=== PATIENT | female | born 1975 | race Caucasian/White ===

== ENCOUNTER → 2018-02-18 | Outpatient (CLI) | payer OTHER | LOC: FIMAGING 10:33 | PROVIDERS: ATTEND Advanced Practice Midwife | DX: O09.522 Supervision of elderly multigravida, second trimester (principal); Z3A.27 27 weeks gestation of pregnancy ==

== ENCOUNTER → 2018-04-28 | Outpatient (CLI) | payer OTHER ==
[~2018-04-28] MED LIST: OLIVE OIL 118 ML BTL ONE; TERBUTALINE SULFATE 1 MG/ML VIAL SC ONE
[2018-04-28 07:21] LABS: PLATELET COUNT 154 10^3/uL (150-400)
[2018-04-28 07:36] VITALS: BP 121/73
--- NOTE | 2018-04-28 08:07 | OBPROG ---
Labor Progress Note Assessment/Plan: Assessment: IUP at 37w4d breech C with Gage Births Plan: ECV - successful, will monitor for reassurance and then d/c home. Pt fine to eat. 04/28/18 08:01 Subjective/Intrapartum Course: 04/28/18 08:02 Pt ready for version, seen last week at [facility] and risks/bene disc. U/S done and baby in great position for left forward roll. back to right side and bottom not too settled in pelvis. good fluid. Reactive NST prior to ECV. pt given terb Objective: 04/28/18 06:45 Temp Pulse Resp BP Pulse Ox 100 121/73 H 04/28/18 07:33 04/28/18 07:33 ECV performed with PS, CNM. Forward roll to left in one movement - took approx 2 min. U/S done and FHTs with very transient dip to 100s but then up to 150s. put on monitors and immed reactive pattern. baseline 130s GBTBV and accels. no decels - SVE Membranes: Intact - Contraction Pattern Assessment Current Contraction Pattern: Other (Specify) (none) - FHR Assessment Hackett FHR (bpm): 130 FHR Pattern Variability: Moderate FHR Category: 1 (reactive NST) Oxytocin Orders Assessment - Pre-Induction/Augmentation Assessment Gestational Age: 37 week(s) and 4 day(s) ICD10 Worksheet Patient Problems: Problems Problem Status Onset Breech malpresentation successfully converted to cephalic presentation Acute AMA (advanced maternal age) primigravida 35+ Acute Anemia Acute Vacuum extraction, delivered, current hospitalization Acute - ICD10 Problem Qualifiers (1) AMA (advanced maternal age) primigravida 35+ (2) Breech malpresentation successfully converted to cephalic presentation
--- NOTE | 2018-04-28 09:07 | GHP ---
DATE OF ADMISSION: 04/28/2018 The patient is a 42-year-old G2, P1 at 37+ weeks gestation with an estimated due date of 05/15/2018, who has a breech presentation, for which she consulted with [facility] last week about attemp ting external cephalic version. The patient has had full care with [facility] and is int ending her delivery with them, if the baby can be everted to vertex. The patient has had an uncompli cated other than the breech presentation. The patient's labs have been all normal through the . Her blood type is O positive, rubella immune. No other abnormalities. GBS culture w as performed on 04/21. No results at this time. The patient was thoroughly counseled about the risk s and benefits during an office visit with her and her . The patient agrees to the procedures . She does understand that terbutaline will be used for uterine relaxation. PAST OBSTETRIC HISTORY: The patient had her 1st here at [facility] in June 2014 with her son. It was a vacuum-assisted delivery that she reports was done due to maternal fatig ue after a long protracted labor. The patient had care and attempted with [facility]; however, presented to the hospital after hours of labor, requiring pain medication. She had a vacuum -assistance and had a 3rd to 4th degree tear with that delivery. Singh was approximately 7 pounds. PAST MEDICAL HISTORY: Negative. PAST SURGICAL HISTORY: Negative. ALLERGIES: The patient has no known drug allergies. CURRENT MEDICATIONS: Only vitamins and supplements. SOCIAL HISTORY: The patient is , lives with her and son. The patient is a nonsmoker. No alcohol or drug use. LABS: The patient presented to Labor and Delivery for attempted version. A CBC was performed, which white count is 10.3, hematocrit 39.7, platelet count 154,000. PHYSICAL EXAM: The patient is a well-developed, well-nourished white female in no physical distress. Slightly anxious about the procedure. Vital signs include blood pressure 121/73 and heart rate 100 . The patient is afebrile. See nursing documentation for full details of vital signs. NST was perf ormed before the procedure, and there was a reactive heart rate pattern with baseline in the 13 0s with good [id number] variability and accelerations. There are no decelerations noted. The bhargav ent ready to proceed with the procedure. The ultrasound was performed, and the baby was in persisten t breech presentation. Back was to the maternal right, and head was in the left upper quadrant. The breech was not too deep in the pelvis. There was good amniotic fluid. Extremities are nontender. There was no edema. No vaginal exam was performed. ASSESSMENT: Intrauterine at 37+ weeks, breech presentation at 37+ weeks, and the patient p resents for external cephalic version. PLAN: The patient to receive terbutaline and then proceed with version attempt. Anesthesia is aware and in-house. /[id number]/MODL
== END ==
LOC: FOBOP 06:47 → EDSTATUS 07:30 → FOBOP 08:58
PROVIDERS: ATTEND Obstetrics & Gynecology
DX: O32.1XX0 Maternal care for breech presentation, not applicable or unspecified (principal); O09.523 Supervision of elderly multigravida, third trimester; Z3A.37 37 weeks gestation of pregnancy
CPT/HCPCS: J3105

== ENCOUNTER 2018-05-13 08:48 | Inpatient (IN) | payer OTHER ==
--- NOTE | 2018-05-13 08:54 | PREANESOB ---
Obstetric Pre-Anesthesia Info - General Info Proposed Procedure: labor epidural : 2 Para: 1 TOMYM: 05/16/18 - Info Status: Full Term - Labor Status Cervical Dilation per last OB SVE: 7 PIH: No Magnesium Sulfate in Use: No Indications for Labor Analgesia: Pain Control Labor Epidural: Yes Anesthesia Allergies/Adverse Reactions: Allergy/AdvReac Type Severity Reaction Status Date / Time MACADAMIA NUTS Allergy Severe COMPLETE Uncoded 06/08/11 16:01 RASH/ WELTS Home Medications: Medication Instructions Recorded [employer] 05/31/10 06/17/14 Ibuprofen [Motrin (*)] 600 mg PO Q6 PRN #1 tab 06/19/14 Iron Polysacch/Iron Heme Polyp 28 mg PO BID #45 tab 06/19/14 [Bifera] - Anesthesia History Response to Local Anesthetics: Normal Anesthesia & Operative History: No Prior Problems - Focused Exam Neck exam: FROM Mallampati Score: Class 2 Mouth exam: normal dental/mouth exam Pulmonary: no respiratory distress Cardiovascular: regular rate and rhythym - Plan Consent Signed and on Chart: Yes Patient/Guardian Understands and Agrees to Plan: Yes
[2018-05-13] MEDS ORDERED: TERBUTALINE SULFATE 1 MG/ML VIAL IV PRN (09:02)
[2018-05-13] MEDS ORDERED: OXYTOCIN/RINGERS LACTATE 1,000 ML IV PRN (09:02)
[2018-05-13] MEDS ORDERED: LR 1,000 ML IV PRN (09:02)
[2018-05-13] MEDS ORDERED: OLIVE OIL 118 ML BTL MISC PRN (09:02)
[2018-05-13] MEDS ORDERED: LIDOCAINE 1% 300 MG/30 ML SDV SC PRN (09:02)
[2018-05-13] MEDS ORDERED: MISOPROSTOL 200 MCG TAB PR PRN (09:02)
[2018-05-13] MEDS ORDERED: EPSOM SALT 454 GM TP PRN (09:02)
[2018-05-13] MEDS ORDERED: IBUPROFEN 600 MG TAB PO PRN (09:02)
[2018-05-13] MEDS ORDERED: PHENYLEPHRINE HCL 100 MCG/ML SYR ONE (09:18)
[2018-05-13] MEDS ORDERED: BUPIVACAINE 0.25% 30 ML SDV ONE (09:23)
[2018-05-13] MEDS ORDERED: NALOXONE HCL 0.4 MG/ML INJ IVP PRN (09:29)
[2018-05-13] MEDS ORDERED: PHENYLEPHRINE HCL 100 MCG/ML SYR IVP PRN ×2 (09:29→19:07)
[2018-05-13] MEDS ORDERED: fentaNYL 2MCG/ML/BUP 0.1% RTU 100 ML EP SCH (09:30)
[2018-05-13] MEDS ORDERED: fentaNYL 200 MCG, BUPIVACAINE 0.5% 20 ML in NS 100 ML EP ONE (09:30)
[2018-05-13] MEDS ORDERED: LR 500 ML IV SCH (09:30)
--- NOTE | 2018-05-13 09:44 | PDGENHP ---
History and Physical History and Physical: CARE: [facility] HPI: Patient is a 43 yo G 2 P 1 @ 39.4 weeks that presents to L&D from [facility]. She had routine PNC at [facility] with a gap in care during summer months while she was living in [place]. Pt has been laboring since 1930 on 06/11. She arrived at [facility] at 2130 and was found to be 3cm/ballotable. She labored with reassuring FHT and found to be 7cm/90/-3 station at 0315 this AM. Her contractions intensified but she had no cervical changed and no descent over next several hours. She requested transfer to [facility] for epidural d/t maternal exhaustion. EDC: 05/16/2018 which is based on LMP: 08/08/17 which is known and consistent with Ultrasound at 28 weeks. Anatomy scan delayed b/c pt was living in [facility] for the summer. Her is complicated by: AMA over 40yo. Review of Systems: Constitutional: Reports fatigue. Denies any fever, chills HEENT: denies any visual changes, difficulty swallowing, hearing loss Cardiovascular: Denies any chest pain, palpitations, leg swelling Respiratory: denies any cough, wheezing, or shortness of breathe GI: Reports mild nausea. Denies any vomiting, diarrhea, constipation : denies any dysuria, urgency, frequency, vaginal bleeding Musculoskeletal: denies any muscle or bone pain Skin: denies any rashes Neuro: denies any headache, seizures, lightheadedness, dizziness, or loss of consciousness Psychiatric: denies any depression, anxiety, or SI/HI thoughts HISTORY: Previous OB history: VAVD in 2015 with 3rd or 4th degree lac., prolonged labor 7# baby boy. Social history: , works in [employer] Family history: sister-anxiety, father-heart disease Past medical history: head injury 1998, head aches and migraines Past surgical history: none Medications: PNV, probiotics, D3, B6,Mag Allergies (list reaction): macadamia nuts, hazelnuts, eggs, NKDA LABS: Rh: O + ABS: Neg Rubella: Immune HbsAg: NR HIV: NR VDRL: NR 1hr: 100 GC: Neg Chlamydia: Neg Pap: Normal GBS: neg BMI: (prepreg) <30 PHYSICAL EXAM: Constitutional: WN, A&Ox3 HEENT: normocephalic atraumatic, supple Heart: RRR, no murmur Chest: CTA-B Skin: warm, dry, intact Abdomen: Soft, nontender, gravid SVE: at 0800, 7/90/-3 Extremities: trace edema, negative homans sign Neuro: grossly normal Psych: normal affect assessment: FHT baseline 135, +accels, no decels, moderate variability Contractions: toco q 5-7 min Assessment: 1) 43 yo G 2 P 1 with IUP@ 39.4 weeks 2) slow progress in labor 3) GBS neg 4) Cat 1 FHR tracing Plan: 1) Admit to L&D 2) epidural anesthesia 3) pitocin augmentation 4) anticipate , Dr. Shah aware
[2018-05-13 10:24] LABS: PLATELET COUNT 146 10^3/uL (150-400)
--- NOTE | 2018-05-13 10:58 | OBPROG ---
Labor Progress Note Assessment/Plan: Assessment: comfortable with epidural SVE /-3 Plan: pitocin augmentation position changes 05/13/18 10:56 Objective: 05/13/18 08:10 VSS - SVE Dilation (cm): 9 Effacement (%): 90 Station: -3 Membranes: Intact (bulgy bag palpated on exam, but appears to be leaking some clear fluid) Amniotic Fluid Color: Clear - Contraction Pattern Assessment Current Contraction Pattern: Irregular Oxytocin Orders Assessment - Pre-Induction/Augmentation Assessment Presentation: Vertex Gestational Age: 39 week(s) and 4 day(s) Estimated Weight: 6984-0341 Membrane Status: Intact Current Contraction Pattern: Irregular ICD10 Worksheet Patient Problems: Problems Problem Status Onset AMA (advanced maternal age) multigravida 35+ Acute Prolonged labor with second Acute Slow progress in first stage of labor Acute
--- NOTE | 2018-05-13 13:34 | OBPROG ---
Labor Progress Note Assessment/Plan: Assessment: SROM at 12:20 Plan: pitocin augmentation position changes 05/13/18 10:56 05/13/18 13:32 Subjective/Intrapartum Course: 05/13/18 13:32 comfortable with epidural feeling more pressure Objective: 05/13/18 08:10 Patient ABO/Rh O POSITIVE 05/13/18 08:10 - SVE Membranes: Intact (bulgy bag palpated on exam, but appears to be leaking some clear fluid) Amniotic Fluid Color: Clear - Contraction Pattern Assessment Current Contraction Pattern: Regular - FHR Assessment Hackett FHR (bpm): 140 FHR Pattern Variability: Minimal FHR Category: 1 - Physical Exam Estimated Weight: 3193-3603 Oxytocin Orders Assessment - Pre-Induction/Augmentation Assessment Presentation: Vertex Gestational Age: 39 week(s) and 4 day(s) Estimated Weight: 5644-9522 ICD10 Worksheet Patient Problems: Problems Problem Status Onset AMA (advanced maternal age) multigravida 35+ Acute Prolonged labor with second Acute Slow progress in first stage of labor Acute
[2018-05-13] MEDS ORDERED: fentaNYL 200 MCG, BUPIVACAINE 0.5% 20 ML in NS 100 ML EP SCH (15:30)
[2018-05-13] MEDS ORDERED: LIDO/EPI 1% **for epidural** 30 ML SDV ONE (15:30)
[2018-05-13] MEDS ORDERED: LR 500 ML IV ONE (17:40)
[2018-05-13] MEDS ORDERED: ceFAZolin 2 GM/DEXTROSE 100 ML IV ONE (17:40)
--- NOTE | 2018-05-13 17:44 | OBPROG ---
Labor Progress Note Assessment/Plan: Assessment: I discussed options for interventions with Aleisha and her partner. She did have a difficult delivery with her first who was born vaginally but only after quite a bit of pushing and ultimate sustained signficant perineal trauma that made for a very difficult recovery. I offered that we certainly had options bc the baby is looking good. I wouldn't feel comfortable assisting with forceps or vacuum at this station, but I offered that we could continue to push and reasses at a later time, or we could move towards Csection now. She'd really prefer to move towards , which I think is very reasonable for her given her progress, her history and her current exam. Consents signed in person, preop orders placed. Subjective/Intrapartum Course: 05/13/18 13:32 comfortable with epidural feeling more pressure 05/13/18 17:42 I was asked to see and examine Aleisha by Priscilla Morales CNM. At this point she's been pushing for approximately one hour and has made minimal progress per Priscilla' s exams. I did check her and found her to be complete but still at 0 station, ROP position with some caput. Category I tracing. Objective: 05/13/18 08:10 Patient ABO/Rh O POSITIVE 05/13/18 08:10 - SVE Dilation (cm): 10 Effacement (%): 100 Station: 0 (Asynclitic, ROP) Membranes: Intact (bulgy bag palpated on exam, but appears to be leaking some clear fluid) Amniotic Fluid Color: Clear - Contraction Pattern Assessment Current Contraction Pattern: Regular - FHR Assessment Hackett FHR (bpm): 140 FHR Pattern Variability: Moderate FHR Category: 1 - Physical Exam Estimated Weight: 9960-7255 Oxytocin Orders Assessment - Pre-Induction/Augmentation Assessment Presentation: Vertex Gestational Age: 39 week(s) and 4 day(s) Estimated Weight: 2109-6092 ICD10 Worksheet Patient Problems: Problems Problem Status Onset Failure of descent in labor, delivered, current hospitalization Acute AMA (advanced maternal age) multigravida 35+ Acute Prolonged labor with second Acute Slow progress in first stage of labor Acute
--- NOTE | 2018-05-13 17:51 | OBPROG ---
Labor Progress Note Assessment/Plan: Assessment: SROM at 12:20 Plan: pitocin augmentation position changes 05/13/18 10:56 05/13/18 13:32 05/13/18 17:45 minimal progress with pushing. Baby still at -1 station. Reviewed options of continuing to push with possible larger baby, risk of distress, risk of shoulder dystocia. Pt chooses to move toward c/s because of vaginal trauma from first delivery. Feeling tired and ready for delivery. Subjective/Intrapartum Course: 05/13/18 13:32 comfortable with epidural feeling more pressure 05/13/18 17:42 I was asked to see and examine Aleisha by Priscilla Morales CNM. At this point she's been pushing for approximately one hour. Objective: 05/13/18 08:10 Patient ABO/Rh O POSITIVE 05/13/18 08:10 - SVE Dilation (cm): 10 Effacement (%): 100 Station: -1 Membranes: SROM Amniotic Fluid Color: Clear - Contraction Pattern Assessment Current Contraction Pattern: Regular - Physical Exam Estimated Weight: 7969-2752 Oxytocin Orders Assessment - Pre-Induction/Augmentation Assessment Presentation: Vertex Gestational Age: 39 week(s) and 4 day(s) Estimated Weight: 3876-9802 ICD10 Worksheet Patient Problems: Problems Problem Status Onset Failure of descent in labor, delivered, current hospitalization Acute AMA (advanced maternal age) multigravida 35+ Acute Prolonged labor with second Acute Slow progress in first stage of labor Acute - ICD10 Problem Qualifiers (1) Failure of descent in labor, delivered, current hospitalization
[2018-05-13] MEDS ORDERED: LR 1,000 ML IV SCH (18:00)
[2018-05-13] MEDS ORDERED: morphINE PF 5 MG/10 ML INJ ONE (18:04)
[2018-05-13] MEDS ORDERED: ONDANSETRON 4 MG/2 ML VIAL ONE (18:44)
[2018-05-13] MEDS ORDERED: OXYTOCIN 100 UNITS/10 ML VIAL ONE ×3 (18:47)
[2018-05-13] MEDS ORDERED: HYDROCODONE/APAP 5/325 TAB PO PRN (19:07)
[2018-05-13] MEDS ORDERED: OXYCODONE/APAP 5/325 TAB PO PRN (19:07)
[2018-05-13] MEDS ORDERED: MEPERIDINE 25 MG/0.5 ML AMP IVP PRN (19:07)
[2018-05-13] MEDS ORDERED: HYDROmorphONE/DILAUDID 1 MG/ML INJ IVP PRN (19:07)
[2018-05-13] MEDS ORDERED: fentaNYL 100 MCG/2 ML INJ IVP PRN (19:07)
--- NOTE | 2018-05-13 19:10 | POSTANESTH ---
Post Anesthetic Evaluation Cardiovascular Status: Normal, Stable Respiratory Status: Normal, Stable Level of Consciousness/Mental Status: Can Participate in Eval Pain Control: Adequate, Prn Tx Ordered Nausea/Vomiting Control: Adequate, Prn Tx Ordered Complications Possibly Related to Anesthesia: None Noted
[2018-05-13] MEDS ORDERED: ePHEDrine SULFATE 25 MG/5 ML SYR ONE (19:18)
[2018-05-13] MEDS ORDERED: oxyCODONE IR 5 MG TAB PO PRN (19:47)
[2018-05-13] MEDS ORDERED: PROMETHAZINE HCL 25 MG/ML INJ IVP PRN (19:47)
--- NOTE | 2018-05-13 20:17 | POSTOPPROG ---
Post Op Note Date of Operation: 05/13/18 Surgeon: Joe Shah [employer] Worker: Priscilla Morales CNM, Kaye Wheat, RN Anesthesiologist: Sheba Anesthesia: Epidural Pre-op Diagnosis: Arrest of descent Post-op Diagnosis: Same, malposition ROP Procedure: PLTCS Findings: Normal uterus, tubes and ovaries, vigorous baby girl Inf/Abcess present in the surg proc area at time of surgery?: No EBL: 700cc Complications: None Specimen(s): No cord blood gasses, placenta not sent.
--- NOTE | 2018-05-13 20:26 | SUROPNOTE ---
[facility] Operative Report - Surgery Date of Operation: 05/13/18 Surgeon: Joe Shah [employer] Operator: Priscilla Morales CNM, Kaye Wheat RN Anesthesiologist: Sheba Anesthesia: Epidural Pre-op Diagnosis: Arrest of descent Post-op Diagnosis: Same, malposition ROP Procedure: PLTCS Findings: Normal uterus, tubes and ovaries, vigorous baby girl - ROP position Inf/Abcess present in the surg proc area at time of surgery?: No EBL: 700cc Complications: None Specimen(s): No cord blood gasses, placenta not sent. Technique: The patient was taken to the OR where epidural was dosed and anesthesia found to be adequate. The patient was then positioned supine with a leftward tilt and a time-out was performed. She was given weight-based antibiotics prior to skin incision. The abdomen was prepped and draped in normal sterile fashion. A Pfannenstiel skin incision was made with the scalpel and carried down to the fascia. The fascia was incised in the midline and the incision extended bilaterally sharply with scissors. The fascia was dissected off of the underlying rectus muscles superiorly and inferiorly also sharply using scissors. The rectus were in the midline and the peritoneum identified and entered bluntly without issue. The peritoneal incision was extended and the bladder blade was then placed. The vesicouterine junction was identified and a bladder flap created sharply and developed bluntly. A transverse incision was made with the scalpel in the lower uterine segment and extended with cephalad and caudad traction on the incision edges. The head was encountered and easily elevated out of the pelvis and delivered atraumatically, followed by the shoulders and body. The nose and mouth were bulb suctioned. We did wait for 60 seconds before clamping and cutting the cord and then the infant was handed to pediatric staff. Cord blood gases were not sent and the placenta was not sent to pathology. The uterus was then exteriorized and carefully wiped of all debris. The uterus was closed in two layers - the first layer was running with 180 0-vloc and the second a vertical imbricating layer using 0-vicryl. The gutters were cleared of all clots. The uterine incision was reinspected and found to be hemostatic after placement of additional figure of eight sutures of 3-0 vicryl. The uterus was then returned to the abdomen. The fascia was elevated and the rectus muscles and subcutaneous tissues were found to be hemostatic. The fascia was closed with a running 0-Vicryl - single suture. The subcutaneous tissues were irrigated and hemostasis obtained. The subcutaneous space was closed with interrupted sutures of 2-0 vicryl. The skin was closed with 4-0 vloc undyed and then covered with Medipore dressing. The patient tolerated the procedure and was taken to recovery in stable condition. Lap, needle, sponge, and instrument count were announced as correct times two. I was present and scrubbed for the entire case.
[2018-05-13] MEDS: KETOROLAC 30 MG/1 ML SDV IVP SCH (20:44)
[2018-05-13] MEDS ORDERED: KETOROLAC 30 MG/1 ML SDV ONE (20:44)
[2018-05-13] MEDS: ACETAMINOPHEN 325 MG TAB PO SCH (22:00)
[2018-05-14] MEDS: ACETAMINOPHEN 325 MG TAB PO SCH ×4 (04:30→23:58)
[2018-05-14] MEDS: KETOROLAC 30 MG/1 ML SDV IVP SCH ×3 (04:38→18:20)
--- NOTE | 2018-05-14 11:13 | OBPP ---
Progress Note Assessment/Plan: Assessment: pod# 1 s/p PLTCS for arrest of descent uncomplicated post operative and post course breast feeding Plan: 05/14/18 11:10 Subjective/ Course: 05/14/18 11:11 patient is doing well. pain is well controlled. normal lochia. breast feeding is going well. denies headache and changes in vision. not passing gas yet. has dangled feet. Objective: 05/14/18 05:00 Patient ABO/Rh O POSITIVE 05/13/18 08:10 Temp Pulse Resp BP Pulse Ox 36.3 C 96 16 111/68 95 05/14/18 08:00 05/14/18 06:00 05/14/18 06:00 05/14/18 08:00 05/14/18 08:00 Physical Exam - Physical Exam Neck: non-tender, full range of motion, supple Respiratory: chest non-tender, lungs clear, normal breath sounds Cardiac/Chest: normal peripheral pulses, regular rate, rhythm Abdomen: normal bowel sounds, non-tender Extremities: normal range of motion, non-tender, normal inspection, normal capillary refill Skin: normal color, warm/dry, other (incision covered) Neuro/Psych: no motor/sensory deficits, alert, normal mood/affect, oriented x 3
--- NOTE | 2018-05-14 16:19 | OBPP ---
Progress Note Assessment/Plan: Assessment: [id number] s/p primary c/s POD#1 Plan: routine post op care d/c paul and remove dressing this evening ambulate support prn plan d/c approx 48 hrs 05/14/18 10:30 Subjective/ Course: 05/14/18 10:30 Pt doing well, she reports minimal pain, but increases with movement. She is without difficulty. She is happy with , processing ok. She denies any flatus. She has paul, which will be d/c'd this afternoon. She plans to ambulate today. She reports adequate pain control. 05/14/18 11:11 patient is doing well. pain is well controlled. normal lochia. breast feeding is going well. denies headache and changes in vision. not passing gas yet. has dangled feet. Objective: 05/14/18 05:00 Patient ABO/Rh O POSITIVE 05/13/18 08:10 Temp Pulse Resp BP Pulse Ox 36.7 C 103 H 16 115/64 92 05/14/18 12:00 05/14/18 14:29 05/14/18 14:29 05/14/18 12:00 05/14/18 14:29 Uterine Position/Fundal Height: Umbilicus -1, Midline Uterine Tone: Firm Physical Exam - Physical Exam General Appearance: WD/WN, alert, no apparent distress Neck: supple Respiratory: normal breath sounds Cardiac/Chest: regular rate, rhythm Abdomen: non-tender, soft, dressing (C/D/I) Extremities: swelling Skin: normal color, warm/dry Neuro/Psych: alert, normal mood/affect, oriented x 3
--- NOTE | 2018-05-14 17:08 | PDPAINCON ---
Pain Management Consultation Patient referred by Dr.: Kobe Rodriguez - Subjective Pain is: under control Activity: able to ambulate - Objective Technique: spinal opioid (epidural Duramorph) Sensory and motor exam: block has resolved, no apparent ill effects Vital signs: stable - Assessment/Plan Assessment/Plan: pain well-controlled, continue current mgmt (Pt doing well POD 1 from . Was given 4 mg Duramorph via epidural after delivery. )
[2018-05-14] MEDS: IBUPROFEN 600 MG TAB PO SCH ×2 (18:08→23:58)
[2018-05-15] MEDS: ACETAMINOPHEN 325 MG TAB PO SCH ×4 (05:58→17:45)
[2018-05-15] MEDS: IBUPROFEN 600 MG TAB PO SCH ×3 (05:58→17:45)
--- NOTE | 2018-05-15 10:31 | OBPP ---
Progress Note Assessment/Plan: Assessment: 43 yo G2now P2 POD#2 s/p primary LTCS 2/2 arrest of descent, doing well postoperatively, with good return of bowel and bladder function, . Anemia. Plan: Continue routine postop cares, start incentive spirometry, encourage ambulation. Iron supplementation. Routine pp care plan per CNMs. Nataliia Brown MD, FACOG 05/15/18 10:21 Subjective/ Course: 05/14/18 10:30 Pt doing well, she reports minimal pain, but increases with movement. She is without difficulty. She is happy with , processing ok. She denies any flatus. She has paul, which will be d/c'd this afternoon. She plans to ambulate today. She reports adequate pain control. 05/14/18 11:11 patient is doing well. pain is well controlled. normal lochia. breast feeding is going well. denies headache and changes in vision. not passing gas yet. has dangled feet. Doing well. Pain reasonably well controlled, but still seems to limit deep inspiration. + flatus, brandee reg diet, voiding and ambulating slowly but without difficulty. 05/15/18 10:39 Objective: 05/14/18 05:00 Patient ABO/Rh O POSITIVE 05/13/18 08:10 Temp Pulse Resp BP Pulse Ox 36.2 C 87 16 120/72 94 05/15/18 09:45 05/15/18 09:45 05/15/18 09:45 05/15/18 09:45 05/15/18 09:45 gen - pleasant, NAD CV, chest - examined per JJ Mcbride while at bedside, so not repeated fundus - firm at u-2 ext - 1+ pitting edema, no calf tenderness, Sangeeta's neg BLE Uterine Position/Fundal Height: Umbilicus -2 Uterine Tone: Firm
--- NOTE | 2018-05-15 10:55 | OBPP ---
Progress Note Assessment/Plan: Assessment: [id number] s/p primary c/s POD#2 Plan: routine post op care ambulate incentive spirometry given, will start today support prn plan d/c approx 24hrs 05/15/18 10:54 Subjective/ Course: 05/14/18 10:30 Pt doing well, she reports minimal pain, but increases with movement. She is without difficulty. She is happy with , processing ok. She denies any flatus. She has paul, which will be d/c'd this afternoon. She plans to ambulate today. She reports adequate pain control. 05/14/18 11:11 patient is doing well. pain is well controlled. normal lochia. breast feeding is going well. denies headache and changes in vision. not passing gas yet. has dangled feet. Doing well. Pain reasonably well controlled, but still seems to limit deep inspiration. + flatus, brandee reg diet, voiding and ambulating slowly but without difficulty. 05/15/18 10:39 05/15/18 10:53 Pt doing well. Denies any persistent pain, reports more soreness when sitting up. advised use of oblique muscles. Reports minimal bleeding. without difficulty.Happy with experience. Objective: 05/14/18 05:00 Patient ABO/Rh O POSITIVE 05/13/18 08:10 Temp Pulse Resp BP Pulse Ox 36.2 C 87 16 120/72 94 05/15/18 09:45 05/15/18 09:45 05/15/18 09:45 05/15/18 09:45 05/15/18 09:45 Uterine Position/Fundal Height: Umbilicus -2, Midline Uterine Tone: Firm Physical Exam - Physical Exam General Appearance: WD/WN, alert, no apparent distress Respiratory: lungs clear, normal breath sounds Cardiac/Chest: regular rate, rhythm Abdomen: non-tender, soft, incision (well approximated) Extremities: pedal edema Skin: normal color, warm/dry Neuro/Psych: alert, normal mood/affect, oriented x 3
[2018-05-15] MEDS: FERRO-SEQUELS 65 MG TAB.ER PO SCH (11:09)
[2018-05-15] MEDS: SIMETHICONE 80 MG TAB CHEW PO PRN ×2 (11:10→17:47)
[2018-05-15] MEDS: DOCUSATE SODIUM 100 MG CAP PO PRN (11:11)
[2018-05-15] MEDS ORDERED: MAGNESIUM HYDROXIDE 30 ML UDCUP PO PRN (11:27)
[2018-05-15] MEDS ORDERED: BISACODYL 10 MG SUPP PR PRN (11:27)
[2018-05-15] MEDS ORDERED: POLYETHYLENE GLYCOL 3350 17 GM PKT PO PRN (11:27)
[2018-05-15] MEDS ORDERED: LACTULOSE 20 GM/30 ML UDCUP PO PRN (11:27)
[2018-05-15] MEDS ORDERED: SENNOSIDES/DOCUSATE SODIUM TAB PO SCH (21:00)
[2018-05-16] MEDS: IBUPROFEN 600 MG TAB PO SCH ×2 (01:04→07:25)
[2018-05-16] MEDS: ACETAMINOPHEN 325 MG TAB PO SCH ×2 (01:04→07:25)
[2018-05-16 09:16] VITALS: BP 125/78
[2018-05-16] MEDS: FERRO-SEQUELS 65 MG TAB.ER PO SCH (09:21)
[2018-05-16] MEDS: DOCUSATE SODIUM 100 MG CAP PO PRN (10:39)
--- NOTE | 2018-05-16 10:43 | OBPP ---
Progress Note Assessment/Plan: Assessment: SROM at 12:20 Plan: pitocin augmentation position changes 05/13/18 10:56 05/13/18 13:32 05/13/18 17:45 minimal progress with pushing. Baby still at -1 station. Reviewed options of continuing to push with possible larger baby, risk of distress, risk of shoulder dystocia. Pt chooses to move toward c/s because of vaginal trauma from first delivery. Feeling tired and ready for delivery. 05/16/18 10:40 Post-op day 3 Breast feeding well Plan: D/C home today Subjective/ Course: 05/14/18 10:30 Pt doing well, she reports minimal pain, but increases with movement. She is without difficulty. She is happy with , processing ok. She denies any flatus. She has paul, which will be d/c'd this afternoon. She plans to ambulate today. She reports adequate pain control. 05/14/18 11:11 patient is doing well. pain is well controlled. normal lochia. breast feeding is going well. denies headache and changes in vision. not passing gas yet. has dangled feet. Doing well. Pain reasonably well controlled, but still seems to limit deep inspiration. + flatus, brandee reg diet, voiding and ambulating slowly but without difficulty. 05/15/18 10:39 05/15/18 10:53 Pt doing well. Denies any persistent pain, reports more soreness when sitting up. advised use of oblique muscles. Reports minimal bleeding. without difficulty.Happy with experience. 05/16/18 10:41 Breast feeding well, voiding well, + flatus, had BM. Ready to go home. Objective: 05/14/18 05:00 Patient ABO/Rh O POSITIVE 05/13/18 08:10 Temp Pulse Resp BP Pulse Ox 36.3 C 100 16 125/78 H 95 05/16/18 09:11 05/15/18 20:00 05/16/18 09:11 05/16/18 09:11 05/16/18 09:11 VSS, afebrile Uterine Position/Fundal Height: At Umbilicus Uterine Tone: Firm (incision well approximated, faint bruising on Rt side below incision) Physical Exam - Physical Exam Respiratory: normal breath sounds
--- NOTE | 2018-05-16 10:44 | OBGCSDC ---
General Delivery Information - General Info : 2 Para: 2 Abortions: 0 L&D Analgesia/Anesthesia Type: Epidural Admission Date: 05/13/18 Labs: Patient ABO/Rh O POSITIVE 05/13/18 08:10 Hct 31.4 % (38.0-47.0) L 05/14/18 05:00 - Hospital Course Intrapartum: 05/13/18 13:32 comfortable with epidural feeling more pressure 05/13/18 17:42 I was asked to see and examine Aleisha by Priscilla Morales CNM. At this point she's been pushing for approximately one hour and has made minimal progress per Priscilla' s exams. I did check her and found her to be complete but still at 0 station, ROP position with some caput. Category I tracing. : 05/14/18 10:30 Pt doing well, she reports minimal pain, but increases with movement. She is without difficulty. She is happy with , processing ok. She denies any flatus. She has paul, which will be d/c'd this afternoon. She plans to ambulate today. She reports adequate pain control. 05/14/18 11:11 patient is doing well. pain is well controlled. normal lochia. breast feeding is going well. denies headache and changes in vision. not passing gas yet. has dangled feet. Doing well. Pain reasonably well controlled, but still seems to limit deep inspiration. + flatus, brandee reg diet, voiding and ambulating slowly but without difficulty. 05/15/18 10:39 05/15/18 10:53 Pt doing well. Denies any persistent pain, reports more soreness when sitting up. advised use of oblique muscles. Reports minimal bleeding. without difficulty.Happy with experience. 05/16/18 10:41 Breast feeding well, voiding well, + flatus, had BM. Ready to go home. Vaginal - Diagnosis Amniotic Fluid Color: Clear - Delivery Providers Surgeon: Joe Shah - Delivery Indications for Current Section: Arrest of Descent Surgical Procedures: Unscheduled, Low Transverse Intra-op Complications: None [place] Data TOMMY: 05/16/18 Gestational Age: 40 week(s) and 0 day(s) [place] Delivery Date: 05/13/18 Delivery Time: 18:54 Sex of Infant: Female Weight (gm): 3836 g Score (1 Min): 8 Score (5 Min): 9 Discharge Information - Discharge Information Condition: Good Instruction/Follow Up: Two Weeks
== END 2018-05-16 13:00 | disposition home or self-care (01) | DRG 788 ==
LOC: FLD 08:48 → FOB 23:46
PROVIDERS: ADMIT Advanced Practice Midwife; ATTEND Advanced Practice Midwife
PROC: 10D00Z1 Extraction of Products of Conception, Low, Open Approach (ICD-10-PCS; principal; 2018-05-13)
DX: O62.1 Secondary uterine inertia (principal); O32.9XX0 Maternal care for malpresentation of fetus, unspecified, not applicable or unspecified; O75.81 Maternal exhaustion complicating labor and delivery; Z37.0 Single live birth; Z3A.42 42 weeks gestation of pregnancy; O99.03 Anemia complicating the puerperium; D64.9 Anemia, unspecified
CPT/HCPCS: J0690; J1885; J2274; J2370; J2405; J2590; J3010